=== PATIENT | female | born 1990 | race Caucasian/White ===

== ENCOUNTER → 2020-02-19 | Outpatient (CLI) | payer BC ==
[~2020-02-19] MED LIST: BENTYL 10 MG CA10 M1 PO; NOHOMEMEDICATIONS; OMEPRAZOLE 20 M20 MG PO; ONDANSETRON HCL4 M2 PO; PHENERGAN 25 MG25 M1 PO; WELLBUTRIN XL150 MG PO; XANAX 0.5 MG0.5 MG PO
== END ==
LOC: M.LAB 12:47
PROVIDERS: ATTEND Surgery
DX: Z01.812 Encounter for preprocedural laboratory examination (principal); I49.5 Sick sinus syndrome; Z20.828 Contact with and (suspected) exposure to other viral communicable diseases

== ENCOUNTER → 2020-02-24 | Day surgery (SDC) | payer BC ==
[~2020-02-24] MED LIST changes: +DIAZEPAM 5 MG5 M1 PO; +ESOMEPRAZOLE MA40 MG PO; +LEVO-T50 MCG PO; +NORCO 5-325 TA1 EAC2 PO; +ZANAFLEX4 MG PO
--- NOTE | ~2020-02-24 | OP ---
[facility] [address] [place] [address] OPERATIVE REPORT Name: CRISTINA DIALLO Room: [facility].#: [id number] Admission: 02/24/20 Attend Phys: Lisandro Hernandez Discharge: Date of : 89 Report #: [id number] THIS REPORT FOR: cc: Nilson Krishnamurthy Chad W. DO ~ Lisandro Hernandez MD DATE OF SERVICE: 02/24/2020 PREOPERATIVE DIAGNOSIS: Need for central venous access, sick sinus syndrome. POSTOPERATIVE DIAGNOSIS: Need for central venous access, sick sinus syndrome. OPERATION: 1. Ultrasound guidance for Port-A-Cath placement. 2. Port-A-Cath placement with subcutaneous port greater than age 5 years. 3. Fluoroscopic interpretation for Port-A-Cath. SURGEON: Lisandro Hernandez MD ANESTHESIA: General. ESTIMATED BLOOD LOSS: Minimal. SPECIMEN: None. DESCRIPTION OF PROCEDURE: After informed consent was obtained, the patient was brought to the operating room and placed supine. SCDs were placed and working, preoperative antibiotics were administered, general anesthesia was induced. The right neck and chest were prepped and draped in the usual sterile fashion. Using the ultrasound, I identified the right internal jugular vein. It was cannulated with a Seldinger needle. Wire was placed. I used fluoroscopy to confirm placement in the superior vena cava of the wire. An incision was made in the right chest. Cautery dissection was made down into the chest wall fascia. A pocket was made for the reservoir. The catheter was then tunneled to the neck insertion site. Dilator with sheath was placed. This was confirmed with fluoroscopy. Catheter was placed into the sheath as the sheath was peeled away. Catheter was then pulled back and trimmed to 25 cm. It was attached to the reservoir. It flushed and danielle very easily. The skin was then closed with a 4-0 Vicryl and 4-0 Monocryl. Incisions were sealed with Dermabond. Good placement of the Port-A-Cath was confirmed with fluoroscopy and a picture was saved. COMPLICATIONS: [place] [address] OPERATIVE REPORT Name: CRISTINA DIALLO Room: [facility]#: [id number] Admission: 02/24/20 Attend Phys: Lisandro Hernandez Discharge: Date of : 89 Report #: [id number] DISPOSITION: The patient was taken to recovery in satisfactory condition. By: [id number] Hernandez MD /nt
[2020-02-24 09:25] LABS: HEMOGLOBIN 13.2 gm/dL (12.0-15.0)
[2020-02-24 09:29] LABS: CALCIUM 9.9 mg/dL (8.5-10.1); CREATININE 1.1 mg/dL (0.6-1.3); POTASSIUM 3.6 mmol/L (3.5-5.1)
== END | disposition home or self-care (01) ==
LOC: M.SUR 06:31
PROVIDERS: ATTEND Surgery
DX: Z45.2 Encounter for adjustment and management of vascular access device (principal); I49.5 Sick sinus syndrome; F41.9 Anxiety disorder, unspecified; Z98.890 Other specified postprocedural states; Z79.899 Other long term (current) drug therapy; Z88.8 Allergy status to other drugs, medicaments and biological substances

== ENCOUNTER 2020-06-06 17:51 | Emergency (ER) | payer OTHER ==
[~2020-06-06] VITALS: Ht 160 cm; Wt 72.6 kg
[2020-06-06 19:02] VITALS: BP 156/98
== END 2020-06-06 19:03 | disposition home or self-care (01) ==
LOC: M.ERS 17:51
DX: Z45.2 Encounter for adjustment and management of vascular access device (principal); I48.91 Unspecified atrial fibrillation; N80.9 Endometriosis, unspecified; I10 Essential (primary) hypertension; Z88.5 Allergy status to narcotic agent; Z90.89 Acquired absence of other organs